=== PATIENT | male | born 1955 | race Native Hawaiian/Other Pacific Islander ===

== ENCOUNTER 2017-12-06 09:16 | Outpatient (CLI) | payer BC | END 2017-12-06 21:31 | disposition home or self-care (01) | LOC: LABW 09:16 | DX: K64.0 First degree hemorrhoids (principal) | CPT/HCPCS: 82272 ==

== ENCOUNTER 2018-11-29 09:20 | Outpatient (CLI) | payer BC | END 2018-11-29 23:20 | disposition home or self-care (01) | LOC: LABW 09:20 | DX: K64.0 First degree hemorrhoids (principal) | CPT/HCPCS: 82272 ==

== ENCOUNTER 2019-12-04 09:33 | Outpatient (CLI) | payer BC | END 2019-12-04 23:21 | disposition home or self-care (01) | LOC: LABW 09:33 | DX: K64.0 First degree hemorrhoids (principal) | CPT/HCPCS: 82272 ==

== ENCOUNTER 2020-07-23 10:31 | Outpatient (CLI) | payer BC | END 2020-07-23 19:25 | disposition home or self-care (01) | LOC: RAD 10:31 | PROVIDERS: ATTEND Nurse Practitioner Family | DX: E11.9 Type 2 diabetes mellitus without complications (principal); E78.5 Hyperlipidemia, unspecified; I10 Essential (primary) hypertension; M79.642 Pain in left hand ==

== ENCOUNTER 2020-12-16 12:59 | Outpatient (CLI) | payer BC | END 2020-12-16 20:38 | disposition home or self-care (01) | LOC: LABW 12:59 | PROVIDERS: ATTEND Internal Medicine Gastroenterology | DX: K64.0 First degree hemorrhoids (principal) | CPT/HCPCS: 82272 ==

== ENCOUNTER 2022-07-22 08:13 | Outpatient (CLI) | payer BC | END 2022-07-22 19:11 | disposition home or self-care (01) | LOC: US 08:13 | PROVIDERS: ATTEND Nurse Practitioner Family | DX: E78.49 Other hyperlipidemia (principal); I10 Essential (primary) hypertension; E78.1 Pure hyperglyceridemia; Z13.29 Encounter for screening for other suspected endocrine disorder ==

== ENCOUNTER 2022-12-08 10:14 | Outpatient (CLI) | payer BC | END 2022-12-08 18:43 | disposition home or self-care (01) | LOC: LABW 10:14 | PROVIDERS: ATTEND Internal Medicine Gastroenterology | DX: K64.0 First degree hemorrhoids (principal) | CPT/HCPCS: 82272 ==